=== PATIENT | male | born 1945 | race Caucasian/White ===

== ENCOUNTER 2017-12-12 07:58 | Outpatient (CLI) | payer OTHER ==
[~2017-12-12 07:58] MED LIST: KEFLEX500 MG PO; NORVASC10 MG PO; TRAM1TAB98 PO; ZANTAC 7575 MG PO
== END 2017-12-12 08:12 | disposition home or self-care (01) ==
LOC: TOM 07:58
DX: K40.20 Bilateral inguinal hernia, without obstruction or gangrene, not specified as recurrent (principal)
CPT/HCPCS: 72193; Q9965

== ENCOUNTER → 2018-01-01 | Outpatient (CLI) | payer OTHER | END | disposition home or self-care (01) | LOC: NUCLEAR 07:00 | DX: I20.8 Other forms of angina pectoris (principal) | CPT/HCPCS: 78452; 93017; 93306; A9500; J0153 ==

== ENCOUNTER 2019-02-19 18:10 | Emergency (ER) | payer OTHER ==
[~2019-02-19] VITALS: Ht 175.3 cm; Wt 124.7 kg
== END 2019-02-19 21:41 | disposition home or self-care (01) ==
LOC: ER 18:10
DX: M43.06 Spondylolysis, lumbar region (principal)

== ENCOUNTER 2019-08-20 12:00 | Outpatient (CLI) | payer OTHER | END 2019-08-20 12:06 | disposition home or self-care (01) | LOC: LAB 12:00 | DX: K40.20 Bilateral inguinal hernia, without obstruction or gangrene, not specified as recurrent (principal) ==

== ENCOUNTER 2019-08-20 12:28 | Outpatient (CLI) | payer OTHER | END 2019-08-20 14:45 | disposition home or self-care (01) | LOC: RAD 12:28 | DX: R06.02 Shortness of breath (principal); R06.09 Other forms of dyspnea ==

== ENCOUNTER 2019-09-02 13:14 | Emergency (ER) | payer OTHER ==
[~2019-09-02] VITALS: Ht 175.3 cm; Wt 113.4 kg
[2019-09-02] MEDS ORDERED: GLIPIZIDE XL5 MG (14:23)
[2019-09-02] MEDS ORDERED: GLUMETZA500 MG (14:23)
[2019-09-02] MEDS ORDERED: COZAAR50 MG (14:24)
[2019-09-02] MEDS ORDERED: NASAL MIST126 ML (14:24)
== END 2019-09-02 19:20 | disposition home or self-care (01) ==
LOC: ER 13:14
DX: R19.7 Diarrhea, unspecified (principal)

== ENCOUNTER → 2019-09-16 | Outpatient (CLI) | payer OTHER ==
[~2019-09-16] MED LIST changes: +COZAAR50 MG; +GLIPIZIDE XL5 MG; +GLUMETZA500 MG; +NASAL MIST126 ML
== END | disposition home or self-care (01) ==
LOC: TOM 07:24
DX: K40.20 Bilateral inguinal hernia, without obstruction or gangrene, not specified as recurrent (principal)
CPT/HCPCS: 74176; Q9965

== ENCOUNTER 2020-05-22 09:10 | Outpatient (CLI) | payer OTHER | END 2020-05-22 09:16 | disposition home or self-care (01) | LOC: RX STUDY 09:10 | PROVIDERS: ATTEND Specialist | DX: R13.14 Dysphagia, pharyngoesophageal phase (principal) ==

== ENCOUNTER 2021-10-17 13:14 | Emergency (ER) | payer OTHER ==
[~2021-10-17] VITALS: Ht 167.6 cm; Wt 106.6 kg
== END 2021-10-17 20:48 | disposition home or self-care (01) ==
LOC: ER 13:14
DX: J90 Pleural effusion, not elsewhere classified (principal); R42 Dizziness and giddiness; E11.9 Type 2 diabetes mellitus without complications; Z79.84 Long term (current) use of oral hypoglycemic drugs; I10 Essential (primary) hypertension